=== PATIENT | male | born 1940 | race Native Hawaiian/Other Pacific Islander ===

== ENCOUNTER 2017-10-03 10:53 | Day surgery (SDC) | payer MEDICARE ==
[2017-10-03] MEDS ORDERED: Gentamicin 160 MG in Sodium Chloride 0.9% 100 ML IVPB ONE (13:45)
[2017-10-03] MEDS ORDERED: Propofol 10 mg/ml Inj (20 ML) ONE (15:15)
[2017-10-03] MEDS ORDERED: Ciprofloxacin 400mg/200ml D5W 400 MG/200 ML BAG IVPB ONE (15:52)
[2017-10-03] MEDS: HYDROmorphone 0.5 mg/0.5 ml ISec IVP PRN ×3 (16:33→17:30)
--- NOTE | 2017-10-03 16:40 | PCM.SURG1 ---
Surgeon's Initial Post Op Note - Surgeon's Notes Surgeon: Donnell Control Officer Manager: ALEENA Type of Anesthesia: General Endo, General LMA Anesthesia Administered By: staff Pre-Operative Diagnosis: BPH urinary retention Operative Findings: BPH LEDEZMA Post-Operative Diagnosis: BPH LEDEZMA Operation Performed: tulap Specimen/Specimens Removed: na Estimated Blood Loss: EBL {In ML}: 0 Blood Products Given: N/A Drains Used: No Drains Post-Op Condition: Good Date of Surgery/Procedure: 10/03/17 Time of Surgery/Procedure: 16:40
[2017-10-03 18:15] VITALS: RESP 16
[2017-10-03 18:28] VITALS: BP 155/55; PULSE 94; TEMP 97.4; O2SAT 99
--- NOTE | 2017-10-04 02:28 | OP ---
PROCEDURE DATE: 10/03/2017 PREOPERATIVE DIAGNOSIS: Urinary retention due to benign prostatic hyperplasia. POSTOPERATIVE DIAGNOSIS: Urinary retention due to benign prostatic hyperplasia. PROCEDURE: GreenLight laser vaporization of the prostate (TULAP). SURGEON: Mc Jacobo MD TRIM ATTACHER: None. FINDINGS: Trilobar hypertrophy with small median lobe and compensatory trabeculation of bladder with significant outlet obstruction. DESCRIPTION OF PROCEDURE: The procedure is as follows. The patient was asked to sign a detailed informed consent after he was apprised of all risks and complications of this procedure and alternatives to GreenLight laser in the treatment of urinary attention due to BPH. He accepted the risks, signed the consent, and was brought into the room, and a time-out was taken according to the rules and regulations of [facility]. The patient was then cystoscoped with laser cystoscope. The pendulous and membranous urethra were normal. The prostatic urethra showed trilobar hypertrophy with significant outlet obstruction. There was a small median lobe that was plus 3 to 4 trabeculation of bladder with pseudodiverticular formation. There was no evidence of urothelial tumor or stone. The cystoscopic element was removed from the sheath, and the laser resectoscope was inserted, and the laser was very bright from just distal to the bladder neck to just proximal to the verumontanum. Care was taken over to avoid injury to the bladder, urethral orifice, and, verumontanum, none occurred. Adequate voiding trail was achieved. There was minimal bleeding. The bladder was filled. The scope was removed, and #[address] 5 mL catheter was inserted. The patient tolerated this procedure well and was sent to the recovery room in good condition. Followup in our office have been arranged. A prescription for Cipro and detailed postoperative instructions. Mc Jacobo MD
== END 2017-10-03 18:30 | disposition home or self-care (01) ==
LOC: C.SDS 10:53
PROVIDERS: ATTEND Urology
DX: N40.1 Benign prostatic hyperplasia with lower urinary tract symptoms (principal); R33.8 Other retention of urine; N13.8 Other obstructive and reflux uropathy
CPT/HCPCS: 52648; 82948; J0744; J1170; J1580

== ENCOUNTER 2017-10-07 13:49 | Inpatient (IN) | payer MEDICARE ==
[2017-10-07 13:58] VITALS: BMI 23.8
[2017-10-07 15:12] LABS: BASO % 0.5 % (0.0-2.0); EOS # 0.9 K/uL (0.0-0.7); EOS % 10.6 % (0.0-4.0); HEMOGLOBIN 14.6 g/dL (12.0-18.0); LYMPH % 11.2 % (20.0-40.0); MEAN CELL VOLUME 94.6 fL (80.0-94.0); MEAN CORPUSCULAR HEMOGLOBIN 32.7 pg (27.0-31.0); MEAN CORPUSCULAR HGB CONC 34.6 g/dL (33.0-37.0); MEAN PLATELET VOLUME 7.3 fL (7.2-11.7); MONO # 0.9 K/uL (0.0-0.8); MONO % 10.8 % (0.0-10.0); NEUT # 5.8 K/uL (1.8-7.0); NEUT % 66.9 % (50.0-75.0); RBC 4.45 Mil/uL (4.40-5.90); WHITE BLOOD COUNT 8.7 K/uL (4.8-10.8)
[2017-10-07 15:15] LABS: URINE BILIRUBIN NEGATIVE (NEGATIVE); URINE BLOOD 2+ (NEGATIVE); URINE CLARITY Clear (Clear); URINE COLOR Yellow (YELLOW); URINE GLUCOSE (UA) NORMAL (Normal); URINE LEUKOCYTE ESTERASE TRACE Leu/uL (Negative); URINE PROTEIN 2+ mg/dL (NEGATIVE); URINE UROBILINOGEN NORMAL mg/dL (0.2-1.0)
[2017-10-07 15:26] LABS: ALB/GLOB RATIO 1.1 (1.0-2.1); ALBUMIN 4.6 g/dL (3.5-5.0); ALT/SGPT 15 U/L (21-72); AST/SGOT 28 U/L (17-59); BLOOD UREA NITROGEN 18 mg/dL (9-20); CALCIUM 9.5 mg/dl (8.6-10.4); GFR AFRICAN-AMERICAN > 60; GFR NON-AFRICAN AMERICAN > 60
--- NOTE | 2017-10-07 16:56 | CP.PCM.HP ---
History of Present Illness - History of Present Illness History of Present Illness: 77 y. o. male with pmh NIDDM2 Hypertension Cholesterol COPD/smoker BPH with urinary retention on rodriguez cath for one month patient came to clinic due to 3 days fiery red rash on both legs knee down patient reports he was on rodriguez cath for a month- they travelled to [facility], no mountains, he was on antibiotic continously for a month now, came [place] to [place], tried removing rodriguez cath but patient cannot urinate, rodriguez cath reinserted and about 3 days he noted fiery red rash with swelling of legs with some itchiness but no pain no fever , he ambulate normally, but du eto worsening of leg condition , he decided to come to the clinic. in the clinic, patient had fiery red shiny swollen lower extremeties, BP WAS LOW,WITH IMBALANCE FEELING, DUE TO ABOVE CONDITION, PATIENT WAS ADMITTED FOR FURTHER EVALUATION AND MANAGEMENT PMH as above DM 2. hHTn Cholesterol recent urinary retention- being worked up by urologist Tiffanie Social smoker and still smokes non etoh, lives with family surgical - Present on Admission - Present on Admission Any Indicators Present on Admission: Yes History of DVT/PE: No History of Uncontrolled Diabetes: Yes Urinary Catheter: Yes Decubitus Ulcer Present: No Review of Systems - Constitutional Constitutional: absent: Fever, Lethargy, Weakness - EENT Eyes: absent: Other Visual Disturbances Ears: absent: Ear Discharge, Ear Pain Nose/Mouth/Throat: absent: Nasal Congestion, Sore Throat - Cardiovascular Cardiovascular: absent: Chest Pain, Dyspnea on Exertion, Syncope - Respiratory Respiratory: Cough (chronically, on and off ). absent: Chest Congestion - Gastrointestinal Gastrointestinal: absent: Abdominal Pain, Diarrhea, Vomiting - Genitourinary Genitourinary: Difficulty Urinating, Hx /Renal Surgery (with indwelling rodriguez cath) - Musculoskeletal Musculoskeletal: absent: Abnormal Gait, Back Pain, Deformity - Integumentary Integumentary: Rash (fiery red lower extremeties). absent: Skin Ulcer, Jaundice - Neurological Neurological: absent: Abnormal Gait, Abnormal Hearing, Abnormal Movements, Behavioral Changes, Convulsions, Syncope - Psychiatric Psychiatric: Confusion. absent: Behavioral Changes - Hematologic/Lymphatic Hematologic: absent: Easy Bleeding, Easy Bruising Past Patient History - Past Medical History & Family History Past Medical History?: Yes - Past Social History Smoking Status: Heavy Smoker > 10 Cigarettes Daily - CARDIAC Hx Cardiac Disorders: Yes Hx Hypercholesterolemia: Yes Hx Hypertension: Yes - ENDOCRINE/METABOLIC Hx Endocrine Disorders: Yes Hx Diabetes Mellitus Type 2: Yes - INTEGUMENTARY Hx Dermatological Problems: No - MUSCULOSKELETAL/RHEUMATOLOGICAL Hx Musculoskeletal Disorders: No - GASTROINTESTINAL Hx Gastrointestinal Disorders: No - GENITOURINARY/GYNECOLOGICAL Hx Genitourinary Disorders: Yes Other/Comment: Urinary retention, BPH - PSYCHIATRIC Hx Psychophysiologic Disorder: No Hx Substance Use: No - SURGICAL HISTORY Hx Surgeries: No Other/Comment: Laser sx for prostate - ANESTHESIA Hx Anesthesia: Yes Meds Allergies/Adverse Reactions: Allergies Allergy/AdvReac Type Severity Reaction Status Date / Time No Known Allergies Allergy Verified 10/07/17 13:57 Physical Exam - Constitutional Appears: No Acute Distress - Head Exam Head Exam: ATRAUMATIC, NORMOCEPHALIC - Eye Exam Eye Exam: Normal appearance. absent: Nystagmus - ENT Exam ENT Exam: Mucous Membranes Moist - Neck Exam Neck exam: Positive for: Full Rom. Negative for: Meningismus - Respiratory Exam Respiratory Exam: Decreased Breath Sounds, Clear to Auscultation Bilateral, NORMAL BREATHING PATTERN - Cardiovascular Exam Cardiovascular Exam: REGULAR RHYTHM - GI/Abdominal Exam GI & Abdominal Exam: Normal Bowel Sounds, Soft. absent: Tenderness - Exam Exam: absent: Bladder Distension (with indwelling catheter) - Extremities Exam Extremities exam: Positive for: full ROM (but fiery red rash shiny swollen lower extremeties skin intact, no pain warm to touch ) - Back Exam Back exam: absent: tenderness - Neurological Exam Neurological exam: Alert, Normal Gait, Oriented x3 - Psychiatric Exam Psychiatric exam: Normal Affect, Normal Mood - Skin Skin Exam: Intact, Rash (both lower legs with fiery red rash warm swollen ) Results - Vital Signs Recent Vital Signs: Last Vital Signs Temp 98.2 F 10/07/17 13:58 Pulse 95 H 10/07/17 13:58 Resp 18 10/07/17 13:58 BP 125/74 10/07/17 13:58 Pulse Ox 99 10/07/17 13:58 - Labs Result Diagrams: 10/07/17 15:09 10/07/17 15:09 Labs: Laboratory Results - last 24 hr 10/07/17 10/07/17 10/07/17 15:09 15:09 15:09 WBC 8.7 RBC 4.45 Hgb 14.6 Hct 42.1 MCV 94.6 H MCH 32.7 H MCHC 34.6 RDW 13.0 Plt Count 270 MPV 7.3 Neut % (Auto) 66.9 Lymph % (Auto) 11.2 L Larue % (Auto) 10.8 H Eos % (Auto) 10.6 H Baso % (Auto) 0.5 Neut # (Auto) 5.8 Lymph # (Auto) 1.0 Larue # (Auto) 0.9 H Eos # (Auto) 0.9 H Baso # (Auto) 0.0 PT 11.0 INR 1.0 APTT 40 H Sodium Potassium Chloride Carbon Dioxide Anion Gap BUN Creatinine Est GFR ( Amer) Est GFR (Non-Af Amer) Random Glucose Calcium Total Bilirubin AST ALT Alkaline Phosphatase Total Protein Albumin Globulin Albumin/Globulin Ratio Urine Color Yellow Urine Clarity Clear Urine pH 6.0 Ur Specific [place] 1.016 Urine Protein 2+ H Urine Glucose (UA) Normal Urine Ketones Negative Urine Blood 2+ H Urine Nitrate Negative Urine Bilirubin Negative Urine Urobilinogen Normal Ur Leukocyte Esterase Trace Urine WBC (Auto) 4 Urine RBC (Auto) 69 H 10/07/17 15:09 WBC RBC Hgb Hct MCV MCH MCHC RDW Plt Count MPV Neut % (Auto) Lymph % (Auto) Lar[place] % (Auto) Eos % (Auto) Baso % (Auto) Neut # (Auto) Lymph # (Auto) Larue # (Auto) Eos # (Auto) Baso # (Auto) PT INR APTT Sodium 141 Potassium 4.3 Chloride 96 L Carbon Dioxide 28 Anion Gap 21 H BUN 18 Creatinine 1.1 Est GFR ( Amer) > 60 Est GFR (Non-Af Amer) > 60 Random Glucose 96 Calcium 9.5 Total Bilirubin 0.6 AST 28 ALT 15 L Alkaline Phosphatase 48 Total Protein 8.8 H Albumin 4.6 Globulin 4.2 H Albumin/Globulin Ratio 1.1 Urine Color Urine Clarity Urine pH Ur Specific [place] Urine Protein Urine Glucose (UA) Urine Ketones Urine Blood Urine Nitrate Urine Bilirubin Urine Urobilinogen Ur Leukocyte Esterase Urine WBC (Auto) Urine RBC (Auto) Assessment & Plan - Assessment and Plan (Free Text) Assessment: Patient with multiple medical problems, Diabetes (NIDDM2), hypertension COPD /, urinary retention /BPH WITH INDWELLING CATHERE AND ANTIBIOTIC FOR ONE MONTH ADMITTED DUE TO FIERY RED RASH SWOLLEN LEGS, AND HYPOTENSION (IN THE [facility]) AND OFF BALANCE NEED FURTHER WORK UP, CONSULTED AND DISCUSSION WITH ID, MONITOR FS, SLIDING SCALE NEEDED, HYPERTENSION=MONITOR BP -WILL ASSES MEDICATION GI PROPHYLAXIS DVT PROPHYLAXIS
--- NOTE | 2017-10-07 17:30 | C.PDOC ---
History Of Present Illness 77 year old male presents to ED for evaluation of itchy red rash to bilateral lower leg for the last 3 days. Pt notes that the redness started at his legs and has been spreading. Pt had "prostate surgery" on 10/03, h/o BPH with rodriguez for a month with antibiotics. Pt was seen by PMD today and was instructed to report to ER for further evaluation. Denies fever, sob, chest pain, abdominal pain, difficulty breathing or swallowing. Time Seen by Provider: 10/07/17 14:13 Chief Complaint (Nursing): Abnormal Skin Integrity History Per: Patient History/Exam Limitations: no limitations Onset/Duration Of Symptoms: Days Current Symptoms Are (Timing): Still Present Past Medical History Reviewed: Historical Data, Nursing Documentation, Vital Signs Vital Signs: Last Vital Signs Temp 98.1 F 10/08/17 09:00 Pulse 91 H 10/08/17 09:00 Resp 20 10/08/17 09:00 BP 131/90 10/08/17 09:00 Pulse Ox 98 10/08/17 09:00 - Medical History PMH: HTN, Hypercholesterolemia Family History: States: Unknown Family Hx - Social History Hx Alcohol Use: No Hx Substance Use: No - Immunization History Hx Tetanus Toxoid Vaccination: No Hx Influenza Vaccination: No Hx Pneumococcal Vaccination: No Review Of Systems Except As Marked, All Systems Reviewed And Found Negative. Constitutional: Negative for: Fever, Chills Skin: Positive for: Other (leg redness) Physical Exam - Physical Exam Appears: Non-toxic, No Acute Distress Skin: Warm, Dry, Other (non blanching petechiae rash to left lower leg extending to lower quadrants of abdomen, no incerased warmth) Head: Atraumatic, Normacephalic Eye(s): bilateral: Normal Inspection, EOMI Nose: Normal Oral Mucosa: Moist Tongue: No Swelling Lips: No Swelling Throat: Normal, No Erythema, No Exudate, No Drooling Neck: Normal ROM, Supple Chest: Symmetrical Cardiovascular: Rhythm Regular Respiratory: Normal Breath Sounds, No Rales, No Rhonchi, No Wheezing Gastrointestinal/Abdominal: Soft, No Tenderness, Distention, No Guarding, No Rebound Male Genital: Other (rodriguez in place with leg bag) Extremity: Normal ROM, No Tenderness, No Calf Tenderness, Capillary Refill ( less than 2 seconds), No Deformity, No Swelling Neurological/Psych: Oriented x3, Normal Speech, Normal Sensation ED Course And Treatment - Laboratory Results Result Diagrams: 10/07/17 15:09 10/07/17 15:09 O2 Sat by Pulse Oximetry: 99 (RA) Pulse Ox Interpretation: Normal Progress Note: Blood work, UA ordered and reviewed. Pt was given Protonix. On reassessment, patient is resting comfortably, and is in no acute distress. Case discuseed with Dr. Mcpherson who agrees upon admission. Disposition - Disposition Disposition: HOSPITALIZED Disposition Time: 17:00 Condition: STABLE - Clinical Impression Clinical Impression: Rash, Cellulitis - PA / INVESTIGATIONS CHIEF / Resident Statement MD/DO has reviewed & agrees with the documentation as recorded. - Scribe Statement The provider has reviewed the documentation as recorded by the Scribe Jennie Patel All medical record entries made by the Geraldineibbrendan were at my direction and personally dictated by me. I have reviewed the chart and agree that the record accurately reflects my personal performance of the history, physical exam, medical decision making, and the department course for this patient. I have also personally directed, reviewed, and agree with the discharge instructions and disposition.
--- NOTE | 2017-10-07 20:06 | CP.PCM.CON ---
History of Present Illness - History of Present Illness History of Present Illness: INFECTIOUS DISEASE CONSULT: DICTATED; DICT. NO : [id number]; SEE REPORTS; CASE DISCUSSED WITH DR REESE -PMD CASE DISCUSSED WITH LATASHA -DR JUNAID LAZO Past Patient History - Past Medical History & Family History Past Medical History?: Yes - Past Social History Smoking Status: Heavy Smoker > 10 Cigarettes Daily - CARDIAC Hx Hypercholesterolemia: Yes Hx Hypertension: Yes - ENDOCRINE/METABOLIC Hx Endocrine Disorders: Yes Hx Diabetes Mellitus Type 2: Yes - INTEGUMENTARY Hx Dermatological Problems: No - MUSCULOSKELETAL/RHEUMATOLOGICAL Hx Musculoskeletal Disorders: No - GASTROINTESTINAL Hx Gastrointestinal Disorders: No - GENITOURINARY/GYNECOLOGICAL Hx Genitourinary Disorders: Yes Other/Comment: Urinary retention, BPH - PSYCHIATRIC Hx Substance Use: No - SURGICAL HISTORY Hx Surgeries: No Other/Comment: Laser sx for prostate - ANESTHESIA Hx Anesthesia: Yes Meds Allergies/Adverse Reactions: Allergies Allergy/AdvReac Type Severity Reaction Status Date / Time No Known Allergies Allergy Verified 10/07/17 13:57 - Medications Medications: Current Medications Diphenhydramine HCl (Benadryl) 50 mg PO Q6H PRN PRN Reason: FOR ALLERGIES/REDNESS Pantoprazole Sodium (Protonix Ec Tab) 40 mg PO DAILY [facility]BAR Results - Vital Signs Recent Vital Signs: Last Vital Signs Temp 98.3 F 10/07/17 19:05 Pulse 108 H 10/07/17 19:05 Resp 18 10/07/17 19:05 BP 166/81 H 10/07/17 19:05 Pulse Ox 96 10/07/17 19:05 - Labs Result Diagrams: 10/07/17 15:09 10/07/17 15:09 Labs: Laboratory Results - last 24 hr 10/07/17 10/07/17 10/07/17 15:09 15:09 15:09 WBC 8.7 RBC 4.45 Hgb 14.6 Hct 42.1 MCV 94.6 H MCH 32.7 H MCHC 34.6 RDW 13.0 Plt Count 270 MPV 7.3 Neut % (Auto) 66.9 Lymph % (Auto) 11.2 L [place] % (Auto) 10.8 H Eos % (Auto) 10.6 H Baso % (Auto) 0.5 Neut # (Auto) 5.8 Lymph # (Auto) 1.0 [place] # (Auto) 0.9 H Eos # (Auto) 0.9 H Baso # (Auto) 0.0 PT 11.0 INR 1.0 APTT 40 H Sodium Potassium Chloride Carbon Dioxide Anion Gap BUN Creatinine Est GFR ( Amer) Est GFR (Non-Af Amer) Random Glucose Calcium Total Bilirubin AST ALT Alkaline Phosphatase Total Protein Albumin Globulin Albumin/Globulin Ratio Urine Color Yellow Urine Clarity Clear Urine pH 6.0 Ur Specific [place] 1.016 Urine Protein 2+ H Urine Glucose (UA) Normal Urine Ketones Negative Urine Blood 2+ H Urine Nitrate Negative Urine Bilirubin Negative Urine Urobilinogen Normal Ur Leukocyte Esterase Trace Urine WBC (Auto) 4 Urine RBC (Auto) 69 H 10/07/17 15:09 WBC RBC Hgb Hct MCV MCH MCHC RDW Plt Count MPV Neut % (Auto) Lymph % (Auto) [place] % (Auto) Eos % (Auto) Baso % (Auto) Neut # (Auto) Lymph # (Auto) [place] # (Auto) Eos # (Auto) Baso # (Auto) PT INR APTT Sodium 141 Potassium 4.3 Chloride 96 L Carbon Dioxide 28 Anion Gap 21 H BUN 18 Creatinine 1.1 Est GFR ( Amer) > 60 Est GFR (Non-Af Amer) > 60 Random Glucose 96 Calcium 9.5 Total Bilirubin 0.6 AST 28 ALT 15 L Alkaline Phosphatase 48 Total Protein 8.8 H Albumin 4.6 Globulin 4.2 H Albumin/Globulin Ratio 1.1 Urine Color Urine Clarity Urine pH Ur Specific [place] Urine Protein Urine Glucose (UA) Urine Ketones Urine Blood Urine Nitrate Urine Bilirubin Urine Urobilinogen Ur Leukocyte Esterase Urine WBC (Auto) Urine RBC (Auto)
[2017-10-07] MEDS ORDERED: methylPREDNISolone 40 MG in Sodium Chloride 0.9% 100 ML IVPB SCH (20:15)
[2017-10-07] MEDS: MethylPREDNISolone 40 mg Vial IV SCH (21:51)
[2017-10-07] MEDS: (Novolog) Insulin Aspart, Recombinant 100 u/ml 10 ml vial SC SCH (21:52)
[2017-10-07] MEDS ORDERED: cefTRIAXone 2 GM in Sodium Chloride 0.9% 100 ML IVPB SCH (22:00)
[2017-10-07 22:20] LABS: URINE BILIRUBIN NEGATIVE (NEGATIVE); URINE BLOOD 2+ (NEGATIVE); URINE CLARITY Clear (Clear); URINE COLOR Yellow (YELLOW); URINE GLUCOSE (UA) 1+ mg/dL (Normal); URINE LEUKOCYTE ESTERASE TRACE Leu/uL (Negative); URINE PROTEIN 2+ mg/dL (NEGATIVE); URINE UROBILINOGEN NORMAL mg/dL (0.2-1.0)
[2017-10-07 23:25] VITALS: RESP 20; TEMP 98.1
[2017-10-08] MEDS: MethylPREDNISolone 40 mg Vial IV SCH ×2 (03:59→10:36)
--- NOTE | 2017-10-08 03:59 | CON ---
DATE: INFECTIOUS DISEASE CONSULTATION REQUESTED BY: Dr. Andrade REASON FOR CONSULTATION: Bilateral lower extremity redness for the past 3 days, history of laser prostatectomy on 10/03/2017 with history of urinary retention, status post Mckeon catheter reinsertion. HISTORY OF PRESENT ILLNESS: A 77-year-old male with history of hypertension, hypercholesterolemia, who presented to the ER for evaluation of bilateral lower extremity redness and rash, which has been extending up to his abdomen and torso and presently also seen on the face with itching for the last 3 days. The patient states that he was started on a new medication after laser prostatectomy done on 10/03/2017. Since then, he has been itching and developing redness, erythema, and generalized rash. The patient is unable to give details of the history, but as per discussion with urologist, Dr. Jacobo, found out the patient was started on Urecholine and Cipro, which he had been taking for almost more than 3-1/2 weeks. The patient also states he recently had a visit to [facility], but he was not sick while he was at [facility]. He was sent there with the Mckeon catheter in, and on his return, he had laser prostatectomy on 10/03/2017. The patient presently denies any fever or chills. Denies any cough or expectoration. The patient denies any recent history of tick bites or insect bites. The patient denies any headache or seizure disorder. PAST MEDICAL HISTORY: As above, history of hypertension, hypercholesterolemia, and benign prostatic hypertrophy, status post recent laser prostatectomy done on 10/03/2017 by urologist, Dr. Jacobo. FAMILY HISTORY: Unknown. SOCIAL HISTORY: Denies history of alcohol or any substance abuse. He used to be a smoker. Quit 7 years ago. IMMUNIZATION HISTORY: Unsure of influenza vaccination or pneumococcal vaccination. Denies any tetanus toxoid vaccination. REVIEW OF SYSTEMS: Respiratory: Denies any cough or expectoration. Cardiovascular System: Denies any chest pain or palpitations. GI: Denies any diarrhea or obstipation. : As reported, he has a Mckeon catheter in place, draining normal colored urine. Slightly hazy. Rest of the review of systems unremarkable. MEDICATIONS: As per chart reviewed, presently not on any antibiotics except that he was taking Cipro up until today, but has been on it for the past 3-1/2 weeks. PHYSICAL EXAMINATION: GENERAL: The patient is awake, alert, not in any acute distress. VITAL SIGNS: Blood pressure 125/74, respirations 18, pulse rate 95, temperature 98.2, pulse ox is 99%. HEENT: Pupils equal and reactive to light and accommodation. Extraocular movements full. Fundus negative. Sclerae are nonicteric. Conjunctivae normal. SKIN: Warm, dry. There is nonblanching rash, maculopapular, in both lower extremities, also seen on the torso, abdomen, and the back. Also extending up to the face with itching and pruritus. Rash is nonblanchable. No open lesions seen. NECK: Appears to be supple. No lymphadenopathy noted. LUNGS: Fair air entry. CARDIOVASCULAR SYSTEM: S1, S2. No murmur or gallop. ABDOMEN: Soft, nontender. No masses. Bowel sounds are present. No organomegaly appreciated. EXTREMITIES: Bilateral erythema and rash noted on the lower extremities as well as the torso. There is 1+ edema. Capillary refill is less than 2 seconds. No deformity. No tenderness of calf. Pulses: Dorsalis pedis palpable bilaterally. FLATWORK SUPERVISOR: Oriented x3, normal speech. LABORATORY DATA: WBC 8.7, H and H of 14.6 and 42.1, platelets 270, creatinine 1.1, BUN 18, pulse ox is 99%. X-rays reviewed. IMPRESSION: 1. Generalized maculopapular rash, most likely drug rash secondary to Urecholine. 2. Status post laser prostatectomy, 10/03/2017. 3. Urinary retention, status post Mckeon reinsertion 3 days ago. 4. History of hypertension. 5. Hypercholesterolemia. PLAN: Blood cultures, UA, urine cultures. We will start the patient on Solu-Medrol 125 mg loading dose followed by 40 every 6 hourly for now; Benadryl 50 mg p.o. p.r.n. every 6 hourly for itching. We will also obtain UA and urine cultures as ordered and initiate ceftriaxone 2 gm once a day daily. The patient recently had a prostate surgery. We will follow up UA and urine cultures and blood cultures to adjust antibiotics. Case discussed with the private MD, Dr. Andrade. We will follow up along with you. Thank you very much for allowing me to participate in the care of your patient. Crystal Benavides MD
[2017-10-08] MEDS: (Novolog) Insulin Aspart, Recombinant 100 u/ml 10 ml vial SC SCH ×2 (08:37→12:13)
[2017-10-08 09:44] VITALS: BP 131/90; PULSE 91
--- NOTE | 2017-10-08 09:59 | CP.PCM.PN ---
Subjective - Date & Time of Evaluation Date of Evaluation: 10/08/17 Time of Evaluation: 08:40 - Subjective Subjective: PATIENT SEEN, AMBULATORY WITH URINARY BAG, NON BLOODY STILL HAS SOME RASHES HAD RECEIVED STEROID YESTERDAY - WITH SLIGH IMPROVEMENT NO COUGH NO PAIN CLARIFEID THAT PATIENT HAD PTHER ANTIBIOTIC TAKEN PRIOR TO RASHE S- HAD DISCUSSION WITH ID PATIENT AWRAE OF POSSIBLE DRUG REACTION NO NEED FOR ANTIBIOTIC Objective - Vital Signs/Intake and Output Vital Signs (last 24 hours): Temp Pulse Resp BP Pulse Ox 98.1 F 91 H 20 131/90 98 10/08/17 09:00 10/08/17 09:00 10/08/17 09:00 10/08/17 09:00 10/08/17 09:00 Intake and Output: 10/08/17 10/08/17 06:59 18:59 Intake Total 340 Output Total 900 Balance -560 - Medications Medications: Current Medications Diphenhydramine HCl (Benadryl) 50 mg PO Q6H PRN PRN Reason: FOR ALLERGIES/REDNESS Last Admin: 10/07/17 21:37 Dose: 50 mg Enoxaparin Sodium (Lovenox) 30 mg SC DAILY [facility] Finasteride (Proscar) 5 mg PO DAILY [facility] Glimepiride (Amaryl) 4 mg PO DAILY [facility] Ceftriaxone Sodium 2 gm/ (Sodium Chloride) 100 mls @ 100 mls/hr IVPB Q24H [facility] PRN Reason: Protocol Last Admin: 10/07/17 21:50 Dose: 100 mls/hr Insulin Aspart (Novolog) 0 unit SC ACHS [facility] PRN Reason: Protocol Last Admin: 10/08/17 08:37 Dose: 6 unit Losartan Potassium (Cozaar) 50 mg PO DAILY [facility] Metformin HCl (Glucophage Xr) 500 mg PO BID [facility] Methylprednisolone (Solu-Medrol) 40 mg IV Q6H [facility] Last Admin: 10/08/17 03:59 Dose: 40 mg Metoprolol Succinate (Toprol Xl) 50 mg PO BID [facility] Pantoprazole Sodium (Protonix Ec Tab) 40 mg PO DAILY [facility] Pneumococcal Polyvalent Vaccine (Pneumovax 23 Vaccine) 0.5 ml IM .ONCE ONE Stop: 10/08/17 10:01 Rosuvastatin Calcium (Crestor) 20 mg PO HS [facility] Last Admin: 10/07/17 21:37 Dose: 20 mg Tamsulosin HCl (Flomax) 0.4 mg PO DAILY [facility]BAR - Labs Labs: 10/07/17 15:09 10/07/17 15:09 PT 11.0 SECONDS (9.7-12.2) 10/07/17 15:09 INR 1.0 10/07/17 15:09 APTT 40 SECONDS (21-34) H 10/07/17 15:09 - Constitutional Appears: Non-toxic - Head Exam Head Exam: NORMAL INSPECTION, NORMOCEPHALIC - Eye Exam Eye Exam: Normal appearance. absent: Nystagmus - ENT Exam ENT Exam: Mucous Membranes Moist - Neck Exam Neck Exam: Full ROM - Respiratory Exam Respiratory Exam: Decreased Breath Sounds, Clear to Ausculation Bilateral, NORMAL BREATHING PATTERN - Cardiovascular Exam Cardiovascular Exam: REGULAR RHYTHM - GI/Abdominal Exam GI & Abdominal Exam: Soft, Normal Bowel Sounds. absent: Tenderness - Extremities Exam Extremities Exam: Full ROM (RASHES PRESENT BUT NOT FIERY RED , SWELLING WENT DOWN ) - Neurological Exam Neurological Exam: Alert, Awake, Normal Gait (USES CANE FOR ARTHTRITIS), Oriented x3 - Psychiatric Exam Psychiatric exam: Normal Affect, Normal Mood - Skin Skin Exam: Intact, Normal Color, Rash (LESS REDNESS ) Assessment and Plan - Assessment and Plan (Free Text) Assessment: PATIENT WITH DM HYPERTENSION WITH EPISODE OF HYPOTENSION- THAT NORMALIZED FIERY RED RASH , INFECTION RULED UT , TURNED TO BE DRUG RASH - WILL CONTINUE PREDNISONE AND TAPER WITH GI PROPHYAXIS , WILL SEE PATIENT IN THE CLINIC NEXT WEEK
[2017-10-08] MEDS ORDERED: Metoprolol Succinate 50 mg XL Tab PO SCH (10:00)
[2017-10-08] MEDS ORDERED: Pneumococcal 23-Valent Vaccine IM ONE (10:00)
[2017-10-08] MEDS ORDERED: Pantoprazole 40 mg EC Tab PO SCH (10:00)
[2017-10-08] MEDS ORDERED: Enoxaparin 30 mg Syringe SC SCH (10:00)
--- NOTE | 2017-10-08 14:16 | CP.PCM.DIS ---
Provider - Provider Date of Admission: 10/07/17 16:39 Attending physician: Lilliana Andrade MD Time Spent in preparation of Discharge (in minutes): 30 Hospital Course - Lab Results Lab Results: Most Recent Lab Values WBC 8.7 K/uL (4.8-10.8) 10/07/17 15:09 RBC 4.45 Mil/uL (4.40-5.90) 10/07/17 15:09 Hgb 14.6 g/dL (12.0-18.0) 10/07/17 15:09 Hct 42.1 % (35.0-51.0) 10/07/17 15:09 MCV 94.6 fL (80.0-94.0) H 10/07/17 15:09 MCH 32.7 pg (27.0-31.0) H 10/07/17 15:09 MCHC 34.6 g/dL (33.0-37.0) 10/07/17 15:09 RDW 13.0 % (11.5-14.5) 10/07/17 15:09 Plt Count 270 K/uL (130-400) 10/07/17 15:09 MPV 7.3 fL (7.2-11.7) 10/07/17 15:09 Neut % (Auto) 66.9 % (50.0-75.0) 10/07/17 15:09 Lymph % (Auto) 11.2 % (20.0-40.0) L 10/07/17 15:09 Jennings % (Auto) 10.8 % (0.0-10.0) H 10/07/17 15:09 Eos % (Auto) 10.6 % (0.0-4.0) H 10/07/17 15:09 Baso % (Auto) 0.5 % (0.0-2.0) 10/07/17 15:09 Neut # (Auto) 5.8 K/uL (1.8-7.0) 10/07/17 15:09 Lymph # (Auto) 1.0 K/uL (1.0-4.3) 10/07/17 15:09 Jennings # (Auto) 0.9 K/uL (0.0-0.8) H 10/07/17 15:09 Eos # (Auto) 0.9 K/uL (0.0-0.7) H 10/07/17 15:09 Baso # (Auto) 0.0 K/uL (0.0-0.2) 10/07/17 15:09 PT 11.0 SECONDS (9.7-12.2) 10/07/17 15:09 INR 1.0 10/07/17 15:09 APTT 40 SECONDS (21-34) H 10/07/17 15:09 Sodium 141 mmol/L (132-148) 10/07/17 15:09 Potassium 4.3 mmol/L (3.6-5.2) 10/07/17 15:09 Chloride 96 mmol/L (98-107) L 10/07/17 15:09 Carbon Dioxide 28 mmol/L (22-30) 10/07/17 15:09 Anion Gap 21 (10-20) H 10/07/17 15:09 BUN 18 mg/dL (9-20) 10/07/17 15:09 Creatinine 1.1 mg/dL (0.8-1.5) 10/07/17 15:09 Est GFR ( Amer) > 60 10/07/17 15:09 Est GFR (Non-Af Amer) > 60 10/07/17 15:09 POC Glucose (mg/dL) 221 mg/dL (65-110) H 10/08/17 11:27 Random Glucose 96 mg/dL (75-110) 10/07/17 15:09 Calcium 9.5 mg/dl (8.6-10.4) 10/07/17 15:09 Total Bilirubin 0.6 mg/dL (0.2-1.3) 10/07/17 15:09 AST 28 U/L (17-59) 10/07/17 15:09 ALT 15 U/L (21-72) L 10/07/17 15:09 Alkaline Phosphatase 48 U/L (38-126) 10/07/17 15:09 Total Protein 8.8 g/dL (6.3-8.3) H 10/07/17 15:09 Albumin 4.6 g/dL (3.5-5.0) 10/07/17 15:09 Globulin 4.2 gm/dL (2.2-3.9) H 10/07/17 15:09 Albumin/Globulin Ratio 1.1 (1.0-2.1) 10/07/17 15:09 Urine Color Yellow (YELLOW) 10/07/17 22:07 Urine Clarity Clear (Clear) 10/07/17 22:07 Urine pH 6.0 (5.0-8.0) 10/07/17 22:07 Ur Specific Chadwick 1.012 (1.003-1.030) 10/07/17 22:07 Urine Protein 2+ mg/dL (NEGATIVE) H 10/07/17 22:07 Urine Glucose (UA) 1+ mg/dL (Normal) H 10/07/17 22:07 Urine Ketones Negative mg/dL (NEGATIVE) 10/07/17 22:07 Urine Blood 2+ (NEGATIVE) H 10/07/17 22:07 Urine Nitrate Negative (NEGATIVE) 10/07/17 22:07 Urine Bilirubin Negative (NEGATIVE) 10/07/17 22:07 Urine Urobilinogen Normal mg/dL (0.2-1.0) 10/07/17 22:07 Ur Leukocyte Esterase Trace Mariza/uL (Negative) 10/07/17 22:07 Urine WBC (Auto) 6 /hpf (0-5) H 10/07/17 22:07 Urine RBC (Auto) 51 /hpf (0-3) H 10/07/17 22:07 - Hospital Course Hospital Course: PATIENT ADMITTED DUE TORED RASH COVERING BOTH LEGS KNEE DOWN- WITH SWELLING THAT APPEARED LIKE A CELLULOTIS BUT WITH INTACT SKIN, WITH OTHER DIFFEREB=NTIAL FOR DRUG RASH DUE TO RECENT INTAKE OF ANTIBIOTICS, ID CONSULTED AND CONFIRMED DRG RASH- PATIENT RESPONDED SLIGHT LY WITH FIRST DOSE OF STEROID , UNEVENTFUL STAY- DISCUSSION OF HOME AND TAPER STEROID OUT PATIENT ALONG WITH GI PROPHYLAXIS , PATIENT AWARE OF DISCUSSION Discharge Exam - Head Exam Head Exam: NORMAL INSPECTION, NORMOCEPHALIC - Eye Exam Eye Exam: Normal appearance. absent: Nystagmus - ENT Exam ENT Exam: Mucous Membranes Moist - Neck Exam Neck exam: Full Rom - Respiratory Exam Respiratory Exam: Decreased Breath Sounds, Clear to PA & Lateral, NORMAL BREATHING PATTERN - GI/Abdominal Exam GI & Abdominal Exam: Normal Bowel Sounds, Soft. absent: Tenderness - Extremities Exam Extremities exam: full ROM (SWELING IMPROVED. RED RASH COVERING BOTH LEGS SOMEWHAT LESS REDDISH, NO PAIN ) - Back Exam Back exam: absent: FULL ROM, tenderness - Neurological Exam Neurological exam: Alert, Normal Gait, Oriented x3 - Skin Skin Exam: Normal Color Discharge Plan - Follow Up Plan Condition: GOOD Disposition: HOME/ ROUTINE Instructions: Cellulitis (Skin Infection), Adult (DC) Additional Instructions: Home same meds. Please get prescriptions from MD office today
[2017-10-08 22:37] VITALS: O2SAT 99
== END 2017-10-08 13:30 | disposition home or self-care (01) | DRG 607 ==
LOC: C.ER 13:49 → C.9E 16:39 → C.3T 18:44
PROVIDERS: ADMIT Internal Medicine; ATTEND Internal Medicine
DX: L27.0 Generalized skin eruption due to drugs and medicaments taken internally (principal); R21 Rash and other nonspecific skin eruption; T44.1X5A Adverse effect of other parasympathomimetics [cholinergics], initial encounter; R33.8 Other retention of urine; I10 Essential (primary) hypertension; E78.00 Pure hypercholesterolemia, unspecified; E11.9 Type 2 diabetes mellitus without complications; J44.9 Chronic obstructive pulmonary disease, unspecified; F17.210 Nicotine dependence, cigarettes, uncomplicated; I95.9 Hypotension, unspecified